=== PATIENT | male | born 1975 | race Caucasian/White ===

== ENCOUNTER 2018-02-07 11:24 | Emergency (ER) | payer MEDICAID ==
[2018-02-07 11:39] VITALS: BMI 32.5
[2018-02-07 11:45] VITALS: RESP 16; TEMP 98.7; O2SAT 98
--- NOTE | 2018-02-07 12:36 | C.PDOC ---
History Of Present Illness 42 year old male with PMH hemorroids presents to the ER complaining of rectal pain with "ball" to the area for one week. PT admits to straining with BM and occasional hard stools. Patient states he had similar symptoms in the past. Admits to heavy lifting at work . He denies any abdominal pain, fever, symptoms, hematochezia, diarrhea, or any other associated symptoms. Time Seen by Provider: 02/07/18 12:03 Chief Complaint (Nursing): Abnormal Skin Integrity History Per: Patient History/Exam Limitations: no limitations Onset/Duration Of Symptoms: Days Current Symptoms Are (Timing): Still Present Location Of Injury: Posterior: Buttock (hemorrhoids) Quality Of Symptoms: Painful Past Medical History Reviewed: Historical Data, Nursing Documentation, Vital Signs Vital Signs: Last Vital Signs Temp 98.7 F 02/07/18 11:40 Pulse 75 02/07/18 12:49 Resp 16 02/07/18 12:49 BP 129/85 02/07/18 12:49 Pulse Ox 98 02/07/18 13:16 - Medical History PMH: Diabetes, HTN Surgical History: No Surg Hx Family History: States: No Known Family Hx - Social History Hx Tobacco Use: No Hx Alcohol Use: Yes Hx Substance Use: No - Immunization History Hx Tetanus Toxoid Vaccination: Yes Hx Influenza Vaccination: Yes Hx Pneumococcal Vaccination: Yes Review Of Systems Except As Marked, All Systems Reviewed And Found Negative. Gastrointestinal: Positive for: Rectal Pain, Other (hemorrhoid). Negative for: Diarrhea, Hematochezia Physical Exam - Physical Exam Appears: Non-toxic, No Acute Distress Skin: Normal Color, Warm, Dry Head: Atraumatic, Normacephalic Eye(s): bilateral: Normal Inspection, EOMI Nose: Normal Oral Mucosa: Moist Neck: Normal ROM, Supple Chest: Symmetrical Respiratory: No Accessory Muscle Use, Other (speaking full sentences ) Gastrointestinal/Abdominal: Bowel Sounds, Soft, No Tenderness Rectal: Hemorrhoids (small external hemorroid at 3 o' clock ), Tenderness Back: No CVA Tenderness, No Vertebral Tenderness Neurological/Psych: Oriented x3, Normal Speech Gait: Steady ED Course And Treatment O2 Sat by Pulse Oximetry: 98 (RA) Pulse Ox Interpretation: Normal Progress Note: Discussed withpt diet change. No straining. Sitz baths. Patient given Rx for colace and anusol suppository. Patient instructed to follow up with Surgery (Dr. Tomlinson) in 1-2 days. C2 Tactical Analysis Technician used to ensure understanding. Disposition - Disposition Referrals: Enrique Tomlinson MD [Staff Provider] - Disposition: HOME/ ROUTINE Disposition Time: 12:33 Condition: STABLE Additional Instructions: Aumente la fibra y los lquidos en portillo dieta. No se esfuerce con movimientos intestinales o levantamiento. Kimo un seguimiento con portillo mdico o ciruga en 1- 2 anguiano. Prescriptions: Docusate [Colace] 100 mg PO BID #14 cap Hard Fat/Phenylephrine [place] [Anusol Suppository] 1 sup RC BID #12 sup Instructions: Hemorrhoids Forms: [employer] (Georgian) Print Language: BURUNDIAN - Clinical Impression Clinical Impression: Acute hemorrhoid - PA / CHILDREN'S LITERATURE PROFESSOR / Resident Statement MD/DO has reviewed & agrees with the documentation as recorded. - Scribe Statement The provider has reviewed the documentation as recorded by the Vick Duvall All medical record entries made by the Scribe were at my direction and personally dictated by me. I have reviewed the chart and agree that the record accurately reflects my personal performance of the history, physical exam, medical decision making, and the department course for this patient. I have also personally directed, reviewed, and agree with the discharge instructions and disposition.
[2018-02-07 12:49] VITALS: BP 129/85; PULSE 75
== END 2018-02-07 12:48 | disposition home or self-care (01) ==
LOC: C.ER 11:24
DX: K64.4 Residual hemorrhoidal skin tags (principal); I10 Essential (primary) hypertension; E11.9 Type 2 diabetes mellitus without complications

== ENCOUNTER 2018-08-19 19:25 | Emergency (ER) | payer MEDICAID ==
[2018-08-19 19:25] VITALS: BMI 32.5
[2018-08-19 19:57] VITALS: O2SAT 97
[2018-08-19] MEDS ORDERED: Sodium Chloride 0.9% 2,000 ML IV ONE (20:25)
--- NOTE | 2018-08-19 20:25 | C.PDOC ---
History Of Present Illness The patient, whose past medical history includes IDDM, presents to the ED for evaluation of chills, cough, and back pain that have worsened over the past week. Patient reports fever which began today. Patient denies nausea, vomiting, diarrhea. Time Seen by Provider: 08/19/18 20:24 Chief Complaint (Nursing): Fever History Per: Patient History/Exam Limitations: no limitations Onset/Duration Of Symptoms: Hrs, Other (one week ) Current Symptoms Are (Timing): Worse Location Of Pain: None Sick Contacts (Context): None Associated Symptoms: Fever, Chills, Cough. denies: Nausea, Vomiting, Diarrhea Ear Symptoms: Bilateral: None Severity: Mild Pain Scale Rating Of: 1 Recent travel outside of the [place]: No Additional History Per: Patient Past Medical History Reviewed: Historical Data, Nursing Documentation, Vital Signs Vital Signs: Last Vital Signs Temp 99.9 F H 08/19/18 19:51 Pulse 103 H 08/19/18 19:51 Resp 20 08/19/18 19:51 BP 135/71 08/19/18 19:51 Pulse Ox 97 08/19/18 19:51 - Medical History PMH: Diabetes, HTN Surgical History: No Surg Hx Family History: States: Unknown Family Hx - Social History Hx Tobacco Use: No Hx Alcohol Use: Yes Hx Substance Use: No - Immunization History Hx Tetanus Toxoid Vaccination: Yes Hx Influenza Vaccination: Yes Hx Pneumococcal Vaccination: Yes Review Of Systems Constitutional: Positive for: Fever, Chills Respiratory: Positive for: Cough Gastrointestinal: Negative for: Nausea, Vomiting, Diarrhea Genitourinary: Negative for: Dysuria, Frequency, Incontinence, Hematuria Musculoskeletal: Positive for: Back Pain. Negative for: Leg Pain Skin: Negative for: Rash, Lesions, Jaundice, Bruising Neurological: Negative for: Weakness, Numbness Physical Exam - Physical Exam Appears: Non-toxic, No Acute Distress Skin: Warm, Dry, Other (warm to touch, diffuse alopecia ) Head: Normacephalic Eye(s): bilateral: Normal Inspection Ear(s): Bilateral: Normal Nose: No Discharge Oral Mucosa: Moist Throat: No Erythema, No Exudate Neck: Supple Chest: Symmetrical, No Deformity Cardiovascular: Rhythm Regular, No Murmur Respiratory: No Rales, Rhonchi (scattered), No Wheezing, Other (speaking in complete sentences ) Gastrointestinal/Abdominal: Soft, Tenderness (mild, diffuse ), No Guarding, No Rebound Extremity: Normal ROM, Capillary Refill (less than 2 seconds ) Neurological/Psych: Oriented x3 ED Course And Treatment - Laboratory Results Result Diagrams: 08/19/18 20:46 08/19/18 20:46 O2 Sat by Pulse Oximetry: 97 (on RA ) Pulse Ox Interpretation: Normal - Radiology CXR: Interpreted by Me, Viewed By Me CXR Interpretation: No: Infiltrates, Fracture, Pnemothorax Progress Note: Bloodwork, urinalysis, Flu swab and CXR ordered. Tylenol PO, Toradol IVP, and IV Fluids given. Medical Decision Making Medical Decision Making: Upon provider reevaluation patient is feeling better, is medically stable, and requires no further treatment in the ED at this time. Patient will be discharged home with Rx for tamiflu . Counseling was provided and all questions were answered regarding diagnosis and need for follow up with the referred clinic. There is agreement to discharge plan. Return if symptoms persist or worsen. Disposition Counseled Patient/Family Regarding: Studies Performed, Diagnosis, Need For Followup, Rx Given - Disposition Referrals: [facility] [Outside] [facility] [Outside] Disposition: HOME/ ROUTINE Disposition Time: 20:25 Condition: FAIR Additional Instructions: Por favor regrese si los sntomas recurren. Prescriptions: Oseltamivir Phosphate [Tamiflu] 75 mg PO BID #10 capsule Instructions: Viral Syndrome (DC) Forms: [facility] (Finnish) Print Language: KOSOVAN - Clinical Impression Clinical Impression: Fever, Influenza-like illness - Scribe Statement The provider has reviewed the documentation as recorded by the Scribe (Sinai Joshi) Provider Attestation: All medical record entries made by the Scribe were at my direction and personal ly dictated by me. I have reviewed the chart and agree that the record accurately reflects my personal performance of the history, physical exam, medical decision making, and the department course for this patient. I have also personally directed, reviewed, and agree with the discharge instructions and disposition.
[2018-08-19] MEDS ORDERED: Sodium Chloride 0.9% 1,000 ML ONE (20:52)
[2018-08-19 20:53] LABS: BASO # 0.1 K/uL (0.0-0.2); BASO % 0.7 % (0.0-2.0); EOS # 0.1 K/uL (0.0-0.7); EOS % 0.4 % (0.0-4.0); HEMOGLOBIN 14.2 g/dL (12.0-18.0); LYMPH # 2.2 K/uL (1.0-4.3); LYMPH % 15.3 % (20.0-40.0); MEAN CELL VOLUME 86.3 fL (80.0-94.0); MEAN CORPUSCULAR HEMOGLOBIN 28.4 pg (27.0-31.0); MEAN CORPUSCULAR HGB CONC 32.9 g/dL (33.0-37.0); MEAN PLATELET VOLUME 7.9 fL (7.2-11.7); MONO # 1.5 K/uL (0.0-0.8); MONO % 10.7 % (0.0-10.0); NEUT # 10.4 K/uL (1.8-7.0); NEUT % 72.9 % (50.0-75.0)
[2018-08-19 20:55] LABS: WHITE BLOOD COUNT 14.2 K/uL (4.8-10.8)
[2018-08-19 20:56] LABS: VENOUS BLOOD GAS BASE EXCESS 1.5 mmol/L (0.0-2.0); VENOUS BLOOD GAS PCO2 39 mmHg (40-60); VENOUS BLOOD GAS PO2 50 mm/Hg (30-55); VENOUS BLOOD PH 7.43 (7.32-7.43)
[2018-08-19 21:11] LABS: ALB/GLOB RATIO 1.3 (1.0-2.1); ALT/SGPT 45 U/L (21-72); AST/SGOT 39 U/L (17-59); BLOOD UREA NITROGEN 13 mg/dL (9-20); CALCIUM 8.7 mg/dl (8.6-10.4); GFR NON-AFRICAN AMERICAN > 60
[2018-08-19 21:53] LABS: SQUAMOUS EPITHIAL < 1 /hpf (0-5); URINE BILIRUBIN NEGATIVE (NEGATIVE); URINE BLOOD NEGATIVE (NEGATIVE); URINE CLARITY Clear (Clear); URINE COLOR Yellow (YELLOW); URINE GLUCOSE (UA) 1+ mg/dL (Normal); URINE LEUKOCYTE ESTERASE NEG Leu/uL (Negative); URINE PROTEIN NEGATIVE (NEGATIVE)
[2018-08-19 22:41] VITALS: BP 120/70; PULSE 84; RESP 16; TEMP 98.5
--- NOTE | 2018-08-20 08:26 | RAD ---
HISTORY: SOB COMPARISON: Chest x-ray performed 3 in 2016 TECHNIQUE: Chest, one view. FINDINGS: Examination limited by habitus, hypoinflation, and patient obliquity. LUNGS: No focal consolidation. Bilateral hilar prominence. Please note that chest x-ray has limited sensitivity for the detection of pulmonary masses. PLEURA: No significant pleural effusion identified. No definite pneumothorax . CARDIOVASCULAR: Heart size appears within normal limits. No significant atherosclerotic calcifications identified. OSSEOUS STRUCTURES: No acute osseous abnormality identified. VISUALIZED UPPER ABDOMEN: Unremarkable. OTHER FINDINGS: None. IMPRESSION: Bilateral hilar prominence. No focal consolidation.
== END 2018-08-19 22:41 | disposition home or self-care (01) ==
LOC: C.ER 19:25
DX: J11.1 Influenza due to unidentified influenza virus with other respiratory manifestations (principal); R50.9 Fever, unspecified
CPT/HCPCS: 71045; 80053; 81001; 82009; 82803; 85025; 87040; 87804; 96374; 99283; J1885; J7030